=== PATIENT | female | born 1955 | race Caucasian/White ===

== ENCOUNTER 2017-01-04 10:11 | Observation (INO) | payer OTHER ==
[~2017-01-04] VITALS: Ht 170.2 cm; Wt 112.0 kg
[~2017-01-04 10:11] MED LIST: AUGMENTIN875TAB PO; BACLOFEN10 MG PO; NAPROSYN500 MG PO; PREDNISONE20 MG PO; [UNRECOGNIZED DRUG - OTHER]
[2017-01-04 11:28] LABS: HEMATOCRIT 44.4 % (37.0-47.0); HEMOGLOBIN 14.7 g/dl (12.0-16.0); IMMATURE GRANULOCYTES 0.1 % (0.0-1.0); MEAN CELL VOLUME 97.8 fL CALC (80.0-100.0); MEAN CORPUSCULAR HGB 32.4 pG CALC (26.0-32.0); MEAN CORPUSCULAR HGB CONC 33.1 g/L CALC (32.0-36.0); NEUT# 4.53 thou/uL (2.00-7.15); RED BLOOD COUNT 4.54 mill/uL (4.20-5.60); RED CELL DISTRI WIDTH 13.5 % (11.5-15.5)
[2017-01-04 12:14] LABS: ALBUMIN 4.3 g/dL (3.2-5.0); ALKALINE PHOSPHATASE 89 u/l (38-126); ANION GAP 17 (6-22 (CALC)); BILIRUBIN, TOTAL 0.6 mg/dL (0.0-1.4); BUN 13 mg/dL (8-23); BUN/CREATININE RATIO 20 (12-20 (CALC)); CALCIUM 9.4 mg/dL (8.4-10.2); CARBON DIOXIDE 25 mmol/l (22-30); CHLORIDE 105 mmol/l (95-108); CREATININE 0.7 mg/dL (0.5-1.0); GFR > 60 ML/MIN (>=60 (CALC)); GFR FOR AFR.AMER. > 60 ML/MIN (>=60 (CALC)); GLUCOSE 86 mg/dL (82-115); POTASSIUM 3.9 mmol/l (3.5-5.1); SGOT/AST 57 u/l (9-36); SGPT/ALT 20 u/l (11-66); SODIUM 143 mmol/l (137-146); TOTAL PROTEIN 8.4 g/dL (6.3-8.2)
[2017-01-04 12:26] LABS: MYOGLOBIN 25 ng/mL (0 - 62)
[2017-01-04 14:11] VITALS: BP 136/82
[2017-01-04 19:25] VITALS: BP 153/89
[2017-01-05] VITALS: BP 127/63
[2017-01-05 04:50] VITALS: BP 107/63
[2017-01-05 08:15] VITALS: BP 131/81
[2017-01-05] MEDS ORDERED: ASPIRIN ADULT L81 M2 PO (11:49)
== END 2017-01-05 12:32 | disposition home or self-care (01) | DRG 313 ==
LOC: ENPENDDIS → ED 10:11 → ED-I 12:24 → ED 12:53 → MS2 12:54
PROVIDERS: Emergency Medicine; ADMIT Internal Medicine; ATTEND Internal Medicine
DX: R07.9 Chest pain, unspecified (principal); I49.8 Other specified cardiac arrhythmias; Z82.49 Family history of ischemic heart disease and other diseases of the circulatory system; Z87.891 Personal history of nicotine dependence

== ENCOUNTER 2017-09-16 15:46 | Emergency (ER) | payer OTHER ==
[~2017-09-16] VITALS: Ht 170.2 cm; Wt 109.0 kg
[~2017-09-16 15:46] MED LIST changes: +ASPIRIN ADULT L81 M2 PO
[2017-09-16] MEDS ORDERED: FLEXERIL PO (16:11)
[2017-09-16] MEDS ORDERED: MOTRIN800 MG PO (16:11)
[2017-09-16 16:27] VITALS: BP 148/98
== END 2017-09-16 16:27 | disposition home or self-care (01) | DRG 552 ==
LOC: ED 15:46
DX: M54.5 Low back pain (principal); K59.00 Constipation, unspecified

== ENCOUNTER 2019-08-17 23:18 | Emergency (ER) | payer OTHER ==
[~2019-08-17] VITALS: Ht 170.2 cm; Wt 90.0 kg
[~2019-08-17 23:18] MED LIST changes: +FLEXERIL PO; +MOTRIN800 MG PO
[2019-08-17] MEDS ORDERED: AMOX/K CLAV875 M1 PO (23:33)
[2019-08-18 00:02] LABS: HEMATOCRIT 38.9 % (37.0-47.0); HEMOGLOBIN 12.9 g/dl (12.0-16.0); IMMATURE GRANULOCYTES 0.2 % (0.0-5.0); MEAN CORPUSCULAR HGB 31.9 pG CALC (26.0-32.0); MEAN CORPUSCULAR HGB CONC 33.2 g/L CALC (32.0-36.0); NEUT# 6.14 thou/uL (2.00-7.15); RED BLOOD COUNT 4.05 mill/uL (4.20-5.60); RED CELL DISTRI WIDTH 13.7 % (11.5-15.5)
[2019-08-18 00:24] LABS: ALKALINE PHOSPHATASE 87 u/l (38-126); ANION GAP 15 (6-22 (CALC)); BILIRUBIN, TOTAL 0.4 mg/dL (0.0-1.4); BUN 9 mg/dL (8-23); BUN/CREATININE RATIO 14 (12-20 (CALC)); CARBON DIOXIDE 27 mmol/l (22-30); CHLORIDE 101 mmol/l (95-108); CREATININE 0.6 mg/dL (0.5-1.0); GFR > 60 ML/MIN (>=60 (CALC)); GFR FOR AFR.AMER. > 60 ML/MIN (>=60 (CALC)); POTASSIUM 4.6 mmol/l (3.5-5.1); SGOT/AST 28 u/l (9-36); SODIUM 139 mmol/l (137-146); TOTAL PROTEIN 7.4 g/dL (6.3-8.2)
[2019-08-18] MEDS ORDERED: TYLENOL # 31 TA1 PO (01:37)
[2019-08-18] MEDS ORDERED: STERAPRED DS10 MG PO (01:37)
[2019-08-18 01:50] VITALS: BP 118/63
== END 2019-08-18 01:50 | disposition home or self-care (01) | DRG 103 ==
LOC: ED 23:18
PROVIDERS: Family Medicine
DX: R51 Headache (principal); R70.0 Elevated erythrocyte sedimentation rate
CPT/HCPCS: J0131

== ENCOUNTER 2019-09-02 22:22 | Observation (INO) | payer OTHER ==
[~2019-09-02] VITALS: Ht 170.2 cm; Wt 109.0 kg
[~2019-09-02 22:22] MED LIST changes: +AMOX/K CLAV875 M1 PO; +STERAPRED DS10 MG PO; +TYLENOL # 31 TA1 PO
--- NOTE | 2019-09-02 22:30 | NUR ---
PT. TO ROOM 6 WITH C/O FEELING LIKE HER HEART IS BEATING FAST. PT. PLACED ON HEAD OF INSIGHT SHOWING A-FIB RVR RATE 140'S-160'S. MD AT BEDSIDE. NO C/O CP OR SOB OFFERED.
[2019-09-02] MEDS ORDERED: LISINOPRIL2.5 MG PO (22:52)
[2019-09-02] MEDS ORDERED: ALDACTONE25 MG PO (22:52)
[2019-09-02] MEDS ORDERED: VITAMIN B-1100 M1 PO (22:53)
[2019-09-02] MEDS ORDERED: VITAMIN D PO (22:53)
--- NOTE | 2019-09-02 22:57 | NUR ---
PO ASA GIVEN PER MD ORDER.
--- NOTE | 2019-09-02 22:59 | NUR ---
CARDIZEM BOLUS GIVEN PER MD ORDER.
[2019-09-02 23:03] LABS: HEMOGLOBIN 13.4 g/dl (12.0-16.0); IMMATURE GRANULOCYTES 0.3 % (0.0-5.0); MEAN CELL VOLUME 96.7 fL CALC (80.0-100.0); MEAN CORPUSCULAR HGB 31.6 pG CALC (26.0-32.0); MEAN CORPUSCULAR HGB CONC 32.7 g/L CALC (32.0-36.0); NEUT# 9.3 thou/uL (2.00-7.15); RED BLOOD COUNT 4.24 mill/uL (4.20-5.60); RED CELL DISTRI WIDTH 13.2 % (11.5-15.5)
--- NOTE | 2019-09-02 23:08 | NUR ---
CARDIZEM GTT STARTED AT 10 MH/HR. HR NOW 120'S.
[2019-09-02 23:22] LABS: ALBUMIN 4.1 g/dL (3.2-5.0); ALKALINE PHOSPHATASE 100 u/l (38-126); ANION GAP 12 (6-22 (CALC)); BUN 15 mg/dL (8-23); BUN/CREATININE RATIO 18 (12-20 (CALC)); CARBON DIOXIDE 30 mmol/l (22-30); CHLORIDE 98 mmol/l (95-108); CREATININE 0.8 mg/dL (0.5-1.0); GFR > 60 ML/MIN (>=60 (CALC)); GFR FOR AFR.AMER. > 60 ML/MIN (>=60 (CALC)); POTASSIUM 3.8 mmol/l (3.5-5.1); SGOT/AST 23 u/l (9-36); SODIUM 135 mmol/l (137-146); TOTAL PROTEIN 8.2 g/dL (6.3-8.2)
[2019-09-02 23:24] LABS: D-DIMER 0.4 mg/L (0.19-0.60); PROTHROMBIN TIME 10.4 SECONDS (9.0-12.5)
--- NOTE | 2019-09-02 23:29 | NUR ---
PT. MOVED TO ROOM 10.
[2019-09-02 23:37] LABS: BILIRUBIN, TOTAL 0.6 mg/dL (0.0-1.4)
[2019-09-03] VITALS (14 sets, daily range): BP systolic 102–138; BP diastolic 53–76
--- NOTE | 2019-09-03 00:04 | NUR ---
CARDIZEM GTT INCREASED TO 15 MG/HR. BP 129/59 HR 119 A-FIB.
--- NOTE | 2019-09-03 00:22 | NUR ---
PT. MADE AWARE THAT SHE WILL BE ADMITTED TO ICU BUT THAT THERE ARE NO BEDS AVAILABLE IN ICU SO SHE WILL BE STAYING DOWN HERWE IN THE ER. VERBALIZED UNDERSTANDING.
--- NOTE | 2019-09-03 00:32 | NUR ---
IV CARDIZEM BOLUS GIVEN PER MD ORDER.
--- NOTE | 2019-09-03 01:05 | NUR ---
PT. DRY WALL INSTALLER SHOWING SR, MD AWARE.
[2019-09-03 01:38] LABS: URINE BILIRUBIN - DIPSTICK NEGATIVE (NEGATIVE); URINE BLOOD DIPSTICK TRACE-INTACT (NEGATIVE); URINE COLOR YELLOW; URINE GLUCOSE - DIPSTICK NEGATIVE (NEGATIVE); URINE KETONE NEGATIVE (NEGATIVE); URINE LEUK ESTERASE NEGATIVE (NEGATIVE); URINE NITRITE - DIPSTICK NEGATIVE (Negative); URINE PROTEIN - DIPSTICK NEGATIVE (NEG-TRACE); URINE SPECIFIC GRAVITY <=1.005; URINE UROBILINOGEN - DIPSTICK 0.2 E.U./dL (0.2)
--- NOTE | 2019-09-03 02:58 | NUR ---
CVARDIZEM GTT DECREASED TO 5 MG/HR.
--- NOTE | 2019-09-03 03:28 | NUR ---
CARDIZEM GTT ON NHOLD PER .
--- NOTE | 2019-09-03 04:28 | NUR ---
RESTING QUIETLY EYES CLOSED, NO C/O AT THIS TIME.
[2019-09-03 04:45] LABS: HEMATOCRIT 42.7 % (37.0-47.0); HEMOGLOBIN 13.7 g/dl (12.0-16.0); IMMATURE GRANULOCYTES 0.3 % (0.0-5.0); MEAN CELL VOLUME 98.4 fL CALC (80.0-100.0); MEAN CORPUSCULAR HGB 31.6 pG CALC (26.0-32.0); MEAN CORPUSCULAR HGB CONC 32.1 g/L CALC (32.0-36.0); NEUT# 7.49 thou/uL (2.00-7.15); RED BLOOD COUNT 4.34 mill/uL (4.20-5.60); RED CELL DISTRI WIDTH 13.3 % (11.5-15.5)
[2019-09-03 04:59] LABS: ANION GAP 14 (6-22 (CALC)); BUN 14 mg/dL (8-23); BUN/CREATININE RATIO 20 (12-20 (CALC)); CALCULATED LDLCHOLESTEROL 99 mg/dL (62-129 (CALC)); CARBON DIOXIDE 24 mmol/l (22-30); CHLORIDE 107 mmol/l (95-108); CHOLESTEROL HDL RATIO 3.4 (<4.4 (CALC)); CREATININE 0.7 mg/dL (0.5-1.0); GFR > 60 ML/MIN (>=60 (CALC)); GFR FOR AFR.AMER. > 60 ML/MIN (>=60 (CALC)); HDL CHOLESTEROL 46 mg/dL (>=40); SODIUM 140 mmol/l (137-146); TOTAL CHOLESTEROL 156 mg/dl (0-199); TOTAL TRIGLYCERIDES 57 mg/dl (30-149); VLDL CHOLESTROL 11 mg/dl (1-41 (CALC))
[2019-09-03 05:05] LABS: POTASSIUM 4.7 mmol/l (3.5-5.1)
--- NOTE | 2019-09-03 06:28 | NUR ---
YURY P[ASTE HELD BP 98/52 MD AWARE.
--- NOTE | 2019-09-03 07:00 | NUR ---
PATIENT REPORT FROM RIKY CARPENTER.
--- NOTE | 2019-09-03 07:05 | NUR ---
REPORT TO KANE LAN.
--- NOTE | 2019-09-03 07:25 | NUR ---
PT DENIES COMPLAINTS. RESPS EVEN, UNLABBORED. PLAN OF CARE UPDATED WITH PT
--- NOTE | 2019-09-03 08:55 | NUR ---
PT SLEEPING. NORMAL SINUS NOTED ON MONITOR
--- NOTE | 2019-09-03 09:00 | NUR ---
PATIENT RESTING IN STRETCHER IN NAD. BILATERAL LS CLEAR. MONITOR SHOWING NORMAL SINUS RHYTHM AT A RATE OF 75 AT THIS TIME. PT AWARE OF PLAN OF CARE. CALL LEE WITHIN REACH.
--- NOTE | 2019-09-03 11:00 | NUR ---
PT SITTING UP IN BED IN NO ACUTE DISTRESS. JUICE GIVEN AND NEEDS MET AT THIS TIME. UPDATED ON WAIT TIME FOR TRANSFER TO FLOOR BED. LUNGS CLEAR, NO DISTRESS. NSR ON MONITOR.DENIES CP OR SOB
[2019-09-03] MEDS ORDERED: VITAMIN D31000 UNI1 PO (13:07)
--- NOTE | 2019-09-03 14:25 | NUR ---
PT RESTING SIDE LYING ON BED. VS OBTAINED. BP 103/52, HR 62. NOTIFIED ANIYA FRITZ AND STATED REMOVE NITROPASTE AND ADMINISTER PO ATENOLOL ORDERED. PARKS WORKER STATES SHE WILL DC NITRO PASTE AT THIS TIME. PT UPDATED ON POC.SKIN PWD. NO DISTRESS. DENIES CP
--- NOTE | 2019-09-03 14:29 | NUR ---
SBAR PRINTED TO FLOOR
--- NOTE | 2019-09-03 15:06 | NUR ---
ADMINISTERED IBUPROFEN FOR HEADACHE 02/03 AND ATENOLOL ORDERED. REPORT CALLED TO [facility] ICU.
--- NOTE | 2019-09-03 15:06 | NUR ---
report received from Raffi Watt RN
--- NOTE | 2019-09-03 15:20 | NUR ---
PT TRANSPORTED TO ICU ON CONTINUOUS MOLD HOISTER IN NO DISTRESS.
--- NOTE | 2019-09-03 15:21 | NUR ---
female pt received to ICU bed 7 via stretcher accompanied by Raffi Ly RN in stable condition; ambulatory to bed with steady gait; assessment completed at this time; pt alert and oriented; admits to headache; denies sob/ palpitations/ chest pain; resp even and unlabored; lungs clear; skin color wnl; o2 per nc; hr reg; strong pulses; trace edema noted; sr on monitor; abd soft with bs present; no bm noted per headline writer; pt admits to voiding without complication; #20 in lac flushed and patent; no redness or edema noted at site; plan of care/ meds explained; call light within reach; will continue to monitor
--- NOTE | 2019-09-03 16:40 | NUR ---
awake in bed; complaints of nausea; will medicate; spouse at bedside; iv intact; ra; sr on monitor; call light within reach; will continue to monitor
--- NOTE | 2019-09-03 17:10 | NUR ---
pt with complaints of headache; MACHINERY ERECTOR Jhoan notified
--- NOTE | 2019-09-03 17:54 | NUR ---
awake in bed; no apparent distress noted; medicated with tramadol as per orders; iv intact and patent; sr on monitor; Dr Kiser present at bedside; spose at bedside; call light within reach
--- NOTE | 2019-09-03 19:45 | NUR ---
awake. nad. monitor technician shows sinus rhythm hr 61. #20 lac saline lock. po fluids taken well. voids per bsc. fall precautions cont.
--- NOTE | 2019-09-03 22:00 | NUR ---
eyes closed. stumper feller shows sinus kamini hr 50.
[2019-09-04] VITALS (7 sets, daily range): BP systolic 93–120; BP diastolic 47–68
--- NOTE | 2019-09-04 00:01 | NUR ---
eyes closed. no distress. compliance monitor shows sinus kamini hr 52.
--- NOTE | 2019-09-04 02:00 | NUR ---
resting quietly. resps een & unlabored. no apparent distress. surveillance system monitor shows sinus kamini hr 56.
--- NOTE | 2019-09-04 04:00 | NUR ---
eyes closed. no distress. telemetry monitor shows sinus kamini hr 54.
--- NOTE | 2019-09-04 07:05 | NUR ---
pt awake in bed; no apparent distress noted; pt offers no complaints; assessment completed at this time; pt alert and oriented; denies pain; no n/v noted per policy writer; resp even and unlabored; lungs clear bilat; skin color wnl; ra; hr reg; strong pulses; no edema noted; sr on monitor; abd soft with bs present; bm noted this am; pt voiding without complication; no urine to inspect at this time; bsc; #20 flushed and patent; no redness or edema noted at site; plan of care/ am meds explained; call light within reach; will continue to monitor
--- NOTE | 2019-09-04 08:20 | NUR ---
awake in bed; no apparent distress noted; spouse at bedside; sr on monitor; call light within reach; will continue to monitor
--- NOTE | 2019-09-04 09:15 | NUR ---
awake in bed; am medications explained and administered; will continue to monitor
--- NOTE | 2019-09-04 09:50 | NUR ---
Dr Kiser present at bedside to assess pt and discuss plan of care
--- NOTE | 2019-09-04 10:01 | NUR ---
awake in bed; no apparent distress noted; pt offers no complaints; anticipating discharge; will continue to monitor
[2019-09-04] MEDS ORDERED: TENORMIN25 MG PO (10:05)
[2019-09-04] MEDS ORDERED: ELIQUIS5 MG PO (10:05)
--- NOTE | 2019-09-04 12:11 | NUR ---
awake in bed; no apparent distress noted; pt offers no complaints; iv catheter removed with cath tip intact; discharge instructions reviewed;
--- NOTE | 2019-09-04 12:20 | NUR ---
Discharge instructions given. Patient verbalizes understanding of same. Discharged in stable condition via Wheelchair to Home with spouse. All belongings sent with pt.
[2020-01-16] MEDS ORDERED: BACTRIM DS1 TAB PO (08:10)
[2020-01-16] MEDS ORDERED: SLOW-MAG PO (08:11)
[2020-01-16] MEDS ORDERED: VITAMIN D31000 UNI1 PO (10:29)
[2020-01-16] MEDS ORDERED: VITAMIN B121000 MCG (10:29)
== END 2019-09-04 12:20 | disposition home or self-care (01) | DRG 310 ==
LOC: ED 22:22 → ED-I 23:55 → ED 09-03 00:25 → ED-I 09-03 00:26 → ICU 09-03 14:15
PROVIDERS: ADMIT Internal Medicine; ATTEND Internal Medicine
DX: I48.0 Paroxysmal atrial fibrillation (principal); I10 Essential (primary) hypertension; I89.0 Lymphedema, not elsewhere classified; Z87.891 Personal history of nicotine dependence
CPT/HCPCS: J1650

== ENCOUNTER 2020-09-02 21:15 | Observation (INO) | payer MEDICARE, OTHER ==
[~2020-09-02] VITALS: Ht 170.2 cm; Wt 108.0 kg
[~2020-09-02 21:15] MED LIST changes: +ALDACTONE25 MG PO; +BACTRIM DS1 TAB PO; +ELIQUIS5 MG PO; +LISINOPRIL2.5 MG PO; +SLOW-MAG PO; +TENORMIN25 MG PO; +VITAMIN B-1100 M1 PO; +VITAMIN B121000 MCG; +VITAMIN D PO; +VITAMIN D31000 UNI1 PO
[2020-09-02 21:54] LABS: HEMATOCRIT 43.3 % (37.0-47.0); IMMATURE GRANULOCYTES 0.3 % (0.0-5.0); MEAN CELL VOLUME 97.5 fL CALC (80.0-100.0); MEAN CORPUSCULAR HGB 31.5 pG CALC (26.0-32.0); MEAN CORPUSCULAR HGB CONC 32.3 g/dL CAL (32.0-36.0); NEUT# 8.14 thou/uL (2.00-7.15); RED BLOOD COUNT 4.44 mill/uL (4.20-5.60); RED CELL DISTRI WIDTH 13.5 % (11.5-15.5)
[2020-09-02 22:14] LABS: ALBUMIN 4.3 g/dL (3.2-5.0); ALKALINE PHOSPHATASE 121 u/l (38-126); BUN 14 mg/dL (8-23); BUN/CREATININE RATIO 20 (12-20 (CALC)); CARBON DIOXIDE 29 mmol/l (22-30); CHLORIDE 106 mmol/l (95-108); CREATININE 0.7 mg/dL (0.5-1.0); D-DIMER 0.22 mg/L (0.19-0.60); GFR > 60 ML/MIN (>=60 (CALC)); GFR FOR AFR.AMER. > 60 ML/MIN (>=60 (CALC)); POTASSIUM 3.7 mmol/l (3.5-5.1); SGOT/AST 25 u/l (9-36); TOTAL PROTEIN 7.9 g/dL (6.3-8.2)
[2020-09-02 22:17] LABS: URINE BILIRUBIN - DIPSTICK NEGATIVE (NEGATIVE); URINE BLOOD DIPSTICK SMALL (NEGATIVE); URINE COLOR YELLOW; URINE GLUCOSE - DIPSTICK NEGATIVE (NEGATIVE); URINE KETONE NEGATIVE (NEGATIVE); URINE LEUK ESTERASE NEGATIVE (NEGATIVE); URINE NITRITE - DIPSTICK NEGATIVE (Negative); URINE PROTEIN - DIPSTICK NEGATIVE (NEG-TRACE); URINE UROBILINOGEN - DIPSTICK 0.2 E.U./dL (0.2)
[2020-09-02 22:19] LABS: URINE SQUAMOUS EPITHELIAL CELL FEW EPI/hpf (0-FEW); URINE WBC 0-2 WBC/hpf (0-5)
[2020-09-02 22:24] LABS: PROTHROMBIN TIME 10.1 SECONDS (9.0-12.5)
[2020-09-02 22:26] LABS: MYOGLOBIN 21 ng/mL (0 - 62)
[2020-09-02 22:27] LABS: ANION GAP 13 (6-22 (CALC)); BILIRUBIN, TOTAL 0.3 mg/dL (0.0-1.4); SODIUM 144 mmol/l (137-146)
[2020-09-03 00:10] VITALS: BP 148/76
[2020-09-03 05:11] VITALS: BP 95/51
[2020-09-03 07:41] VITALS: BP 94/56
[2020-09-03 09:11] VITALS: BP 94/56
== END 2020-09-03 12:31 | disposition home or self-care (01) ==
LOC: ED 21:15 → ED-I 22:47 → ED 22:59 → MS2 23:00
PROVIDERS: Family Medicine; ADMIT Internal Medicine; ATTEND Internal Medicine
DX: I48.0 Paroxysmal atrial fibrillation (principal); I10 Essential (primary) hypertension; Z79.01 Long term (current) use of anticoagulants; Z82.49 Family history of ischemic heart disease and other diseases of the circulatory system; Z20.822 Contact with and (suspected) exposure to COVID-19
CPT/HCPCS: G0378

== ENCOUNTER 2020-09-16 10:32 | Observation (INO) | payer MEDICARE, OTHER ==
[~2020-09-16] VITALS: Ht 170.2 cm; Wt 110.4 kg
[2020-09-16 11:48] LABS: HEMATOCRIT 38.1 % (37.0-47.0); HEMOGLOBIN 12.4 g/dl (12.0-16.0); IMMATURE GRANULOCYTES 0.3 % (0.0-5.0); MEAN CELL VOLUME 96.7 fL CALC (80.0-100.0); MEAN CORPUSCULAR HGB 31.5 pG CALC (26.0-32.0); MEAN CORPUSCULAR HGB CONC 32.5 g/dL CAL (32.0-36.0); NEUT# 3.71 thou/uL (2.00-7.15); RED BLOOD COUNT 3.94 mill/uL (4.20-5.60); RED CELL DISTRI WIDTH 13.5 % (11.5-15.5)
[2020-09-16 11:58] LABS: ALBUMIN 3.8 g/dL (3.2-5.0); ALKALINE PHOSPHATASE 65 u/l (38-126); ANION GAP 9 (6-22 (CALC)); BILIRUBIN, TOTAL 0.5 mg/dL (0.0-1.4); BUN 8 mg/dL (8-23); BUN/CREATININE RATIO 13 (12-20 (CALC)); CARBON DIOXIDE 27 mmol/l (22-30); CHLORIDE 102 mmol/l (95-108); CREATININE 0.6 mg/dL (0.5-1.0); GFR > 60 ML/MIN (>=60 (CALC)); GFR FOR AFR.AMER. > 60 ML/MIN (>=60 (CALC)); LIPASE 38 u/l (23-300); SGOT/AST 24 u/l (9-36); SODIUM 134 mmol/l (137-146); TOTAL PROTEIN 6.9 g/dL (6.3-8.2)
[2020-09-16 12:22] LABS: D-DIMER 0.45 mg/L (0.19-0.60)
[2020-09-16] MEDS ORDERED: LASIX20 MG PO (12:27)
[2020-09-16] MEDS ORDERED: ATENOLOL50 MG PO (12:27)
[2020-09-16 12:37] LABS: ACT PARTIAL THROMBO TIME 29.3 SECONDS (20.0-32.5); PROTHROMBIN TIME 10.3 SECONDS (9.0-12.5)
[2020-09-16 18:25] VITALS: BP 122/71
[2020-09-17 00:09] VITALS: BP 127/52
[2020-09-17 04:10] VITALS: BP 112/63
[2020-09-17 07:21] LABS: HEMATOCRIT 40.4 % (37.0-47.0); HEMOGLOBIN 13.3 g/dl (12.0-16.0); IMMATURE GRANULOCYTES 0.4 % (0.0-5.0); MEAN CORPUSCULAR HGB 31.6 pG CALC (26.0-32.0); MEAN CORPUSCULAR HGB CONC 32.9 g/dL CAL (32.0-36.0); NEUT# 5.24 thou/uL (2.00-7.15); RED BLOOD COUNT 4.21 mill/uL (4.20-5.60); RED CELL DISTRI WIDTH 13.7 % (11.5-15.5)
[2020-09-17 07:37] LABS: ALBUMIN 3.4 g/dL (3.2-5.0); ALKALINE PHOSPHATASE 66 u/l (38-126); ANION GAP 11 (6-22 (CALC)); BILIRUBIN, TOTAL 0.4 mg/dL (0.0-1.4); BUN 10 mg/dL (8-23); BUN/CREATININE RATIO 22 (12-20 (CALC)); C-REACTIVE PROTEIN 4.5 mg/dL (0-0.9); CARBON DIOXIDE 26 mmol/l (22-30); CHLORIDE 104 mmol/l (95-108); CREATININE 0.5 mg/dL (0.5-1.0); GFR > 60 ML/MIN (>=60 (CALC)); GFR FOR AFR.AMER. > 60 ML/MIN (>=60 (CALC)); POTASSIUM 4.7 mmol/l (3.5-5.1); SGOT/AST 21 u/l (9-36); SODIUM 135 mmol/l (137-146); TOTAL PROTEIN 6.2 g/dL (6.3-8.2)
[2020-09-17 07:40] VITALS: BP 113/63
[2020-09-17] MEDS ORDERED: ZITHROMAX250 MG PO (10:09)
[2020-09-17] MEDS ORDERED: DEXAMETHASON6 MG PO (10:10)
[2020-09-17 12:00] VITALS: BP 109/63
== END 2020-09-17 12:13 | disposition home or self-care (01) ==
LOC: ED 10:32 → ED-I 11:07 → ED 11:07 → ED-I 13:18 → ED 13:30 → MS2 13:31 → ED-I 13:31 → MS2 16:11
PROVIDERS: Nurse Practitioner; ADMIT Internal Medicine; ATTEND Internal Medicine
DX: U07.1 COVID-19 (principal); J12.82 Pneumonia due to coronavirus disease 2019; I10 Essential (primary) hypertension; I48.0 Paroxysmal atrial fibrillation; Z79.01 Long term (current) use of anticoagulants
CPT/HCPCS: Q9967

== ENCOUNTER 2021-04-03 09:22 | Emergency (ER) | payer MEDICARE, OTHER ==
[~2021-04-03 09:22] MED LIST changes: +ATENOLOL50 MG PO; +DEXAMETHASON6 MG PO; +LASIX20 MG PO; +ZITHROMAX250 MG PO
[2021-04-03 10:39] LABS: HEMATOCRIT 41.4 % (37.0-47.0); HEMOGLOBIN 13.4 g/dl (12.0-16.0); IMMATURE GRANULOCYTES 0.1 % (0.0-5.0); MEAN CELL VOLUME 99.5 fL CALC (80.0-100.0); MEAN CORPUSCULAR HGB 32.2 pG CALC (26.0-32.0); MEAN CORPUSCULAR HGB CONC 32.4 g/dL CAL (32.0-36.0); NEUT# 6.93 thou/uL (2.00-7.15); RED BLOOD COUNT 4.16 mill/uL (4.20-5.60); RED CELL DISTRI WIDTH 13.3 % (11.5-15.5)
[2021-04-03 10:53] LABS: ALBUMIN 4.1 g/dL (3.2-5.0); ALKALINE PHOSPHATASE 74 u/l (38-126); ANION GAP 10 (6-22 (CALC)); BUN 9 mg/dL (8-23); BUN/CREATININE RATIO 12 (12-20 (CALC)); CARBON DIOXIDE 31 mmol/l (22-30); CHLORIDE 100 mmol/l (95-108); CREATININE 0.7 mg/dL (0.5-1.0); GFR > 60 ML/MIN (>=60 (CALC)); GFR FOR AFR.AMER. > 60 ML/MIN (>=60 (CALC)); LIPASE 63 u/l (23-300); POTASSIUM 4.2 mmol/l (3.5-5.1); SGOT/AST 23 u/l (9-36); SODIUM 137 mmol/l (137-146); TOTAL PROTEIN 7.5 g/dL (6.3-8.2)
[2021-04-03 10:54] LABS: BILIRUBIN, TOTAL 0.4 mg/dL (0.0-1.4)
[2021-04-03] MEDS ORDERED: XARELTO20 MG PO (11:38)
[2021-04-03] MEDS ORDERED: FLONASE AL50 MCG/ACT (12:13)
[2021-04-03] MEDS ORDERED: ALLER-CHLOR4 MG PO (12:13)
[2021-04-03] MEDS ORDERED: SUDAFED 12HR120 MG PO (12:13)
[2021-04-03 12:21] VITALS: BP 118/72
== END 2021-04-03 12:54 | disposition home or self-care (01) ==
LOC: ED 09:22
PROVIDERS: Family Medicine
DX: R51.9 Headache, unspecified (principal); R05 Cough; I48.91 Unspecified atrial fibrillation; I10 Essential (primary) hypertension; G40.909 Epilepsy, unspecified, not intractable, without status epilepticus; Z20.822 Contact with and (suspected) exposure to COVID-19

== ENCOUNTER 2022-10-22 08:36 | Emergency (ER) | payer MEDICARE, OTHER ==
[~2022-10-22] VITALS: Ht 170.2 cm; Wt 115.2 kg
[~2022-10-22 08:36] MED LIST changes: +ALLER-CHLOR4 MG PO; +FLONASE AL50 MCG/ACT; +SUDAFED 12HR120 MG PO; +XARELTO20 MG PO
[2022-10-22 09:04] VITALS: BP 134/72
[2022-10-22 09:30] VITALS: BP 120/66
[2022-10-22] MEDS ORDERED: DOXYCYCLINE100 MG PO ×2 (11:50→12:42)
[2022-10-22] MEDS ORDERED: DECADRON4 MG PO ×2 (11:53→12:42)
[2022-10-22 12:38] VITALS: BP 120/66
== END 2022-10-22 12:47 | disposition home or self-care (01) ==
LOC: ED 08:36
DX: R05.9 Cough, unspecified (principal); I10 Essential (primary) hypertension; G40.909 Epilepsy, unspecified, not intractable, without status epilepticus; I48.91 Unspecified atrial fibrillation; Z20.822 Contact with and (suspected) exposure to COVID-19

== ENCOUNTER 2024-08-23 06:34 | Emergency (ER) | payer MEDICARE, OTHER ==
[~2024-08-23] VITALS: Ht 170.2 cm; Wt 115.0 kg
[~2024-08-23 06:34] MED LIST changes: +DECADRON4 MG PO; +DOXYCYCLINE100 MG PO
[2024-08-23 07:07] VITALS: BP 133/63
[2024-08-23] MEDS ORDERED: KETOROLAC TROMETHAMINE 30 MG/ML SDV IM ONE (07:20)
[2024-08-23 07:30] VITALS: BP 126/69
[2024-08-23 08:00] VITALS: BP 121/64
[2024-08-23] MEDS ORDERED: LEVOFLOXACIN750 MG PO (09:00)
[2024-08-23] MEDS ORDERED: NAPROXEN500 MG PO (09:00)
[2024-08-23 09:06] VITALS: BP 121/64
== END 2024-08-23 09:06 | disposition home or self-care (01) ==
LOC: ED 06:34
DX: J32.9 Chronic sinusitis, unspecified (principal); I10 Essential (primary) hypertension; G40.909 Epilepsy, unspecified, not intractable, without status epilepticus; I48.91 Unspecified atrial fibrillation